=== PATIENT | male | born 1980 | race Caucasian/White ===

== ENCOUNTER 2016-12-21 16:39 | Emergency (ER) | payer SELFPAY ==
[~2016-12-21] VITALS: Ht 167.6 cm; Wt 70.0 kg
[~2016-12-21 16:39] MED LIST: ALBU8.5H5 INH
[2016-12-21 17:41] LABS: ASPARTATE AMINO TRANSFERASE 129 U/L (15-37); BLOOD UREA NITROGEN 12 mg/dL (7-18); HEMOGLOBIN 13.9 g/dL (13.7-18.0)
[2016-12-21] MEDS ORDERED: DIPH,PERTUSS(ACELL),TET VAC/PF 0.5 ML IM-VACC ONE ×2 (17:57→18:00)
[2016-12-21] MEDS ORDERED: LORazepam 1MG TABLET ONE (18:54)
[2016-12-21 19:00] VITALS: BP 147/93
[2016-12-21] MEDS ORDERED: LORazepam 1MG TABLET PO ONE (19:00)
== END 2016-12-21 19:13 | disposition home or self-care (01) ==
LOC: ED 19:07
DX: S09.90XA Unspecified injury of head, initial encounter (principal); S33.5XXA Sprain of ligaments of lumbar spine, initial encounter; R79.89 Other specified abnormal findings of blood chemistry; D69.6 Thrombocytopenia, unspecified; J45.909 Unspecified asthma, uncomplicated; Y04.8XXA Assault by other bodily force, initial encounter; Y93.89 Activity, other specified; Y92.89 Other specified places as the place of occurrence of the external cause; Y99.8 Other external cause status
CPT/HCPCS: 36415; 70450; 70486; 72110; 72125; 80053; 85025; 85610; 90471; 90715